=== PATIENT | female | born 1985 | race Caucasian/White ===

== ENCOUNTER → 2018-01-22 | Outpatient (CLI) | payer MEDICAID ==
--- NOTE | 2018-01-22 18:27 | US ---
EXAMINATION TYPE: US transvaginal DATE OF EXAM: 01/22/2018 COMPARISON: NONE CLINICAL HISTORY: Dysfunctional uterine bleeding N93.8. DUB TECHNIQUE: Transvaginal (TV). Date of LMP: EXAM MEASUREMENTS: Uterus: 6.5 x 3.8 x 3.7 cm Endometrial Stripe: 0.41 cm Right Ovary: 2.7 x 1.7 x 1.6 cm Left Ovary: 2.8 x 1.4 x 2.7 cm 1. Uterus: Retroverted Heterogenous with some shadowing no definite mass seen. 2. Endometrium: wnl 3. Right Ovary: Follicles seen 4. Left Ovary: Follicles seen. 5. Bilateral Adnexa: wnl 6. Posterior cul-de-sac: wnl IMPRESSION: No adnexal mass. Normal uterus and endometrium.
== END | disposition home or self-care (01) ==
LOC: RADUSMAIN 17:28
PROVIDERS: ATTEND Family Medicine
DX: N93.8 Other specified abnormal uterine and vaginal bleeding (principal)
CPT/HCPCS: 76830